=== PATIENT | male | born 1945 | race Caucasian/White ===

== ENCOUNTER → 2016-11-01 | Outpatient (CLI) | payer OTHER ==
--- NOTE | 2016-11-01 17:20 | DIAGNOSTIC IMAGING REPORT ---
CHEST 2 VIEWS ROUTINE CLINICAL HISTORY: R05 [id number] COMPARISON STUDY: No previous studies for comparison. FINDINGS: The cardiac and mediastinal contours are normal. There is no evidence of focal pulmonary consolidation. There is no evidence of failure. No pleural effusions are visualized.[ IMPRESSION: No active disease in the chest. Electronically signed by: Venkatesh Begum M.D. 11/01/2016 5:18 PM Dictated Date/Time: 11/01/2016 5:18 PM
== END | disposition home or self-care (01) ==
LOC: C.RAD1850 16:52
PROVIDERS: ATTEND Physician Assistant
DX: R05 Cough (principal)